=== PATIENT | male | born 1985 | race Caucasian/White ===

== ENCOUNTER 2017-07-05 14:54 | Emergency (ER) | END 2017-07-05 18:18 | disposition home or self-care (01) ==

== ENCOUNTER 2017-08-09 09:07 | Day surgery (SDC) | payer OTHER ==
[~2017-08-09] VITALS: Ht 193 cm; Wt 119.8 kg
[~2017-08-09 09:07] MED LIST: ATEN25
== END 2017-08-09 15:07 | disposition home or self-care (01) ==
LOC: ORSCSDS 09:07
PROVIDERS: Orthopaedic Surgery
PROC: 0MRN47Z Replacement of Right Knee Bursa and Ligament with Autologous Tissue Substitute, Percutaneous Endoscopic Approach (ICD-10-PCS; principal; 2017-08-09 10:30)
PROC: 0SBC4ZZ Excision of Right Knee Joint, Percutaneous Endoscopic Approach (ICD-10-PCS; principal; 2017-08-09 10:30)
PROC: 0LBN0ZZ Excision of Right Lower Leg Tendon, Open Approach (ICD-10-PCS; principal; 2017-08-09 10:30)
DX: S83.511D Sprain of anterior cruciate ligament of right knee, subsequent encounter (principal); S83.241D Other tear of medial meniscus, current injury, right knee, subsequent encounter; S83.281D Other tear of lateral meniscus, current injury, right knee, subsequent encounter; S83.401D Sprain of unspecified collateral ligament of right knee, subsequent encounter; Z87.891 Personal history of nicotine dependence
CPT/HCPCS: C1713; J0171; J0690; J1100; J1885; J2250; J2405; J3010; J7120